=== PATIENT | male | born 1955 ===

== ENCOUNTER 2016-08-17 16:24 | Inpatient (IN) | payer MEDICAID, OTHER ==
--- NOTE | 2016-08-17 17:19 | ED PDOC ---
HPI: Psych/Substance Abuse Time Seen by Provider: 08/17/16 17:08 Chief Complaint (Nursing): Psychiatric Evaluation Chief Complaint (Provider): crisis eval History Per: Patient Additional Complaint(s): 61-year-old male presents to emergency department for crisis evaluation. Patient has history of anxiety and depression and has been off of medications for the past 4 years. Patient has been depressed since the of his son in 2013. Patient presents to emergency department with his other son who is concerned for his father. Patient's son at bedside states that his father often self medicates with marijuana and cocaine. Patient will also obtain Xanax from family members. Upon arrival to the emergency department patient offers no acute medical complaints and he denies suicidal or homicidal ideation. Son at bedside states the patient often expresses thoughts of wanting to . Past Medical History Reviewed: Historical Data, Nursing Documentation, Vital Signs Vital Signs: Last Vital Signs Temp 98.7 F 08/17/16 16:38 Pulse 94 H 08/17/16 16:38 Resp 18 08/17/16 16:38 BP 156/87 H 08/17/16 16:38 Pulse Ox 100 08/17/16 16:38 - Medical History PMH: Anxiety, Depression Other PMH: IBS - Surgical History Surgical History: No Surg Hx - Family History Family History: States: No Known Family Hx - Living Arrangements Living Arrangements: With Family (lives with his mother) - Social History Current smoker - smoking cessation education provided: No Alcohol: Social Drugs: Cannabis, Cocaine - Allergies Allergies/Adverse Reactions: Allergies Allergy/AdvReac Type Severity Reaction Status Date / Time No Known Allergies Allergy Verified 08/17/16 17:43 Review of Systems ROS Statement: Except As Marked, All Systems Reviewed And Found Negative Constitutional: Negative for: Fever Cardiovascular: Negative for: Chest Pain Respiratory: Negative for: Cough Gastrointestinal: Negative for: Nausea, Vomiting, Abdominal Pain, Diarrhea Psych: Positive for: Anxiety, Depression Physical Exam - Reviewed Nursing Documentation Reviewed: Yes Vital Signs Reviewed: Yes - Physical Exam Appears: Positive for: Well, Non-toxic, No Acute Distress Skin: Negative for: Rash Eye Exam: Positive for: Normal appearance, EOMI, PERRL Cardiovascular/Chest: Positive for: Regular Rate, Rhythm Respiratory: Positive for: Normal Breath Sounds Gastrointestinal/Abdominal: Positive for: Soft. Negative for: Tenderness, Distended, Guarding, Rebound Extremity: Positive for: Normal ROM Neurologic/Psych: Positive for: Alert, Oriented, Mood/Affect (flat) - Laboratory Results Result Diagrams: 08/17/16 18:00 08/17/16 18:00 - ECG Interpretation Of ECG: Normal sinus rhythm 77 bpm, no acute changes, reviewed by PA and ED attending O2 Sat by Pulse Oximetry: 100 Pulse Ox Interpretation: Normal - Other Rad CXR X-Ray: Interpreted by Me, Viewed By Me X-Ray Interpretation: no acute finding Medical Decision Making Medical Decision Makin61 year old male here for crisis eval, arrives with his son Plan: CBC CMP BAL UDS UA EKG CXR Crisis eval As per crisis counselor and psychiatrist aviation project manager, Dr. Kerr, patient does meet criteria for admission. Patient agrees to stay, he is medically stable for psychiatric admit. Disposition - Clinical Impression Clinical Impression: Depression - Patient ED Disposition Is Patient to be Admitted: Yes - Disposition Disposition Time: 19:05 Condition: FAIR - Pt Status Changed To: Hospital Disposition Of: Inpatient - Admit Certification Admit to Inpatient:: After my assessment, the patient will require hospitalization for at least two midnights. This is because of the severity of symptoms shown, intensity of services needed, and/or the medical risk in this patient being treated as an outpatient. Results - Lab Results Lab Results: 08/17/16 08/17/16 08/17/16 18:10 18:10 18:00 WBC 10.3 RBC 5.08 Hgb 15.0 Hct 45.2 MCV 89.0 MCH 29.5 MCHC 33.2 RDW 13.5 Plt Count 305 MPV 7.2 Neut % (Auto) 72.9 Lymph % (Auto) 17.6 L [place] % (Auto) 6.4 Eos % (Auto) 1.7 Baso % (Auto) 1.4 Neut # 7.5 H Lymph # 1.8 [place] # 0.7 Eos # 0.2 Baso # 0.1 Sodium Potassium Chloride Carbon Dioxide Anion Gap BUN Creatinine Est GFR ( Amer) Est GFR (Non-Af Amer) Random Glucose Calcium Total Bilirubin AST ALT Alkaline Phosphatase Total Protein Albumin Globulin Albumin/Globulin Ratio Urine Color Yellow Urine Clarity Clear Urine pH 6.0 Ur Specific [place] 1.018 Urine Protein Negative Urine Glucose (UA) Neg Urine Ketones 20 Urine Blood Small Urine Nitrate Negative Urine Bilirubin Negative Urine Urobilinogen 0.2-1.0 Ur Leukocyte Esterase Neg Urine RBC (Auto) 5 H Urine Microscopic WBC 1 Urine Bacteria Few H Urine Opiates Screen Negative Urine Methadone Screen Negative Ur Barbiturates Screen Negative Ur Phencyclidine Scrn Negative Ur Amphetamines Screen Negative U Benzodiazepines Scrn Positive H U Oth Cocaine Metabols Positive H U Cannabinoids Screen Negative Alcohol, Quantitative 08/17/16 18:00 WBC RBC Hgb Hct MCV MCH MCHC RDW Plt Count MPV Neut % (Auto) Lymph % (Auto) [place] % (Auto) Eos % (Auto) Baso % (Auto) Neut # Lymph # [place] # Eos # Baso # Sodium 136 Potassium 3.9 Chloride 98 Carbon Dioxide 28 Anion Gap 14 BUN 19 Creatinine 1.0 Est GFR ( Amer) > 60 Est GFR (Non-Af Amer) > 60 Random Glucose 104 Calcium 9.2 Total Bilirubin 0.6 AST 26 ALT 38 Alkaline Phosphatase 71 Total Protein 7.9 Albumin 4.3 Globulin 3.6 Albumin/Globulin Ratio 1.2 Urine Color Urine Clarity Urine pH Ur Specific [place] Urine Protein Urine Glucose (UA) Urine Ketones Urine Blood Urine Nitrate Urine Bilirubin Urine Urobilinogen Ur Leukocyte Esterase Urine RBC (Auto) Urine Microscopic WBC Urine Bacteria Urine Opiates Screen Urine Methadone Screen Ur Barbiturates Screen Ur Phencyclidine Scrn Ur Amphetamines Screen U Benzodiazepines Scrn U Oth Cocaine Metabols U Cannabinoids Screen Alcohol, Quantitative < 10
[2016-08-17 18:16] LABS: BASO # 0.1 K/uL (0.0-0.2); BASO % 1.4 % (0.0-2.0); EOS # 0.2 K/uL (0.0-0.7); EOS % 1.7 % (0.0-4.0); LYMPH # 1.8 K/uL (1.0-4.3); LYMPH % 17.6 % (20.0-40.0); MEAN CORPUSCULAR HEMOGLOBIN 29.5 pg (27.0-31.0); MEAN CORPUSCULAR HGB CONC 33.2 g/dL (33.0-37.0); MEAN PLATELET VOLUME 7.2 fl (7.2-11.7); MONO # 0.7 K/uL (0.0-0.8); MONO % 6.4 % (0.0-10.0); NEUT # 7.5 K/uL (1.8-7.0); NEUT % 72.9 % (50.0-75.0); RBC 5.08 Mil/uL (4.40-5.90); RED CELL DISTRIBUTION WIDTH 13.5 % (11.5-14.5); WHITE BLOOD COUNT 10.3 K/uL (4.8-10.8)
--- NOTE | 2016-08-17 18:17 | RAD ---
HISTORY: Medical clearance COMPARISON: No prior. FINDINGS: LUNGS: No active pulmonary disease. PLEURA: No significant pleural effusion identified, no pneumothorax apparent. CARDIOVASCULAR: No radiographic findings to suggest acute or significant cardiovascular disease. OSSEOUS STRUCTURES: No significant abnormalities. VISUALIZED UPPER ABDOMEN: Normal. OTHER FINDINGS: None. IMPRESSION: No active disease.
[2016-08-17 18:25] LABS: ALB/GLOB RATIO 1.2 (1.0-2.1); ALBUMIN 4.3 g/dL (3.5-5.0); ALT/SGPT 38 U/L (21-72); AST/SGOT 26 U/L (17-59); BLOOD UREA NITROGEN 19 mg/dl (9-20); CALCIUM 9.2 mg/dL (8.4-10.2); GFR AFRICAN-AMERICAN > 60; GFR NON-AFRICAN AMERICAN > 60
[2016-08-17 18:28] LABS: URINE BACTERIA FEW (<OCC); URINE BILIRUBIN NEGATIVE (NEGATIVE); URINE BLOOD SMALL (NEGATIVE); URINE CLARITY CLEAR (Clear); URINE COLOR YELLOW (YELLOW); URINE GLUCOSE (UA) NEG (Normal); URINE LEUKOCYTE ESTERASE NEG Leu/uL (Negative); URINE NITRATE NEGATIVE (NEGATIVE); URINE PROTEIN NEGATIVE (NEGATIVE); URINE UROBILINOGEN 0.2-1.0 mg/dL (0.2-1.0)
[2016-08-17 18:37] LABS: BARBITURATES, UR NEGATIVE (NEGATIVE); BENZODIAZEPINES, UR POSITIVE (NEGATIVE); OPIATES, UR NEGATIVE (NEGATIVE); PHENCYCLIDINE, UR NEGATIVE (NEGATIVE)
[2016-08-17 20:15] VITALS: O2SAT 99
[2016-08-17] MEDS ORDERED: Magnesium Hydroxide Susp 30 ml UD PO PRN (22:07)
[2016-08-17] MEDS ORDERED: DiphenhydrAMINE 50 mg/ml Inj IM PRN (22:07)
[2016-08-18 07:12] LABS: T4 7.88 ug/dl (5.5-11.0)
[2016-08-18 07:47] LABS: FERRITIN 50.5 ng/mL
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
--- NOTE | 2016-08-18 08:59 | CARD ---
APPROVED REPORT EKG Measurement Heart [id number] <Conclusion> Sinus rhythm with marked sinus arrhythmia Otherwise normal ECG
--- NOTE | 2016-08-18 10:40 | CP.PCM.CON ---
History of Present Illness - History of Present Illness History of Present Illness: CC: "I'm depressed" HPI: Patient is a 61 YO Male with PMH of depression, anxiety and IBS? presents to [facility] for depression. Patient notes that he is not feeling well, and he has been this way since 2013 when his son . Denies thoughts of hurting himself. Per patient he was given medications by his psychiatrist but he stopped taking them. He has been taking his friends medication and using cocaine to help him cope with his feelings. In regards to IBS, pt says that he was never prescribed any medication for it, he had a colonoscopy 3 years ago and the doctor told him he might have IBS. Endorses intermittent pain in the LLQ , but pain is inconsistent. No pain currently. Patient endorses feeling well now , he says "as long as my mind is good, I have no pain and my body is good." Denies chest pain, palpitations, dyspnea, n/v/d/c. PMH: Depression, anxiety, IBS? SurgH: Denies FH: lung cancer father SH: denies smoking, occasional ETOH use, endorses cocaine, marijuana use. Lives with mother. Allergies: NKDA Meds: non-compliant, not taking any home meds Review of Systems - Constitutional Constitutional: absent: Fever, Headache - Cardiovascular Cardiovascular: absent: Chest Pain, Dyspnea, Palpitations - Respiratory Respiratory: absent: Cough, Dyspnea - Gastrointestinal Gastrointestinal: Abdominal Pain. absent: Constipation, Diarrhea, Nausea, Vomiting - Genitourinary Genitourinary: absent: Difficulty Urinating, Dysuria - Musculoskeletal Musculoskeletal: absent: Back Pain, Muscle Weakness - Neurological Neurological: absent: Dizziness, Weakness - Psychiatric Psychiatric: Depression Past Patient History - Past Medical History & Family History Past Medical History?: Yes - Past Social History Smoking Status: Never Smoked Alcohol: Social Drugs: Cannabis, Cocaine Home Situation {Lives}: With Family - GASTROINTESTINAL Hx Irritable Bowel: Yes - PSYCHIATRIC Hx Anxiety: Yes Hx Depression: Yes Hx Substance Use: Yes (COCAINE,MARIJUANA) - ANESTHESIA Hx Anesthesia: No Meds Allergies/Adverse Reactions: Allergies Allergy/AdvReac Type Severity Reaction Status Date / Time No Known Allergies Allergy Verified 08/17/16 17:43 - Medications Medications: Current Medications Acetaminophen (Tylenol 325mg Tab) 650 mg PO Q4 PRN PRN Reason: for pain 4-7 Al Hydrox/Mg Hydrox/Simethicone (Maalox Plus 30 Ml) 30 ml PO Q4 PRN PRN Reason: Dyspepsia Diphenhydramine HCl (Benadryl) 50 mg IM Q6 PRN PRN Reason: Extrapyramidal S/S Unable PO Diphenhydramine HCl (Benadryl) 50 mg PO Q6 PRN PRN Reason: Extrapyramidal Symptoms Diphenhydramine HCl (Benadryl) 50 mg PO HS PRN PRN Reason: Sleep Escitalopram Oxalate (Lexapro) 10 mg PO DAILY NILDA Haloperidol (Haldol) 5 mg PO Q4 PRN PRN Reason: Agitation Haloperidol Lactate (Haldol) 5 mg IM Q4 PRN PRN Reason: Agitation, Unable to Take PO Lorazepam (Ativan) 2 mg IM Q4 PRN PRN Reason: Anxiety/Agitation,Unable PO Lorazepam (Ativan) 2 mg PO Q4 PRN PRN Reason: Anxiety/Agitation Last Admin: 08/18/16 05:02 Dose: 2 mg Magnesium Hydroxide (Milk Of Magnesia) 30 ml PO HS PRN PRN Reason: Constipation Risperidone (Risperdal Tab) 0.5 mg PO HS NILDA Physical Exam - Constitutional Appears: Well, No Acute Distress - Head Exam Head Exam: ATRAUMATIC, NORMOCEPHALIC - Eye Exam Eye Exam: EOMI, Normal appearance - ENT Exam ENT Exam: Mucous Membranes Moist - Neck Exam Neck exam: Positive for: Full Rom - Respiratory Exam Respiratory Exam: Clear to Auscultation Bilateral, NORMAL BREATHING PATTERN. absent: Wheezes - Cardiovascular Exam Cardiovascular Exam: REGULAR RHYTHM, +S1, +S2 - GI/Abdominal Exam GI & Abdominal Exam: Normal Bowel Sounds, Soft. absent: Distended, Guarding, Tenderness - Extremities Exam Extremities exam: Positive for: full ROM, normal inspection. Negative for: pedal edema, tenderness - Neurological Exam Neurological exam: Alert, Normal Gait - Psychiatric Exam Psychiatric exam: Depressed Additional comments: disorganized thought process - Skin Skin Exam: Dry, Intact, Normal Color, Warm Results - Vital Signs Recent Vital Signs: Last Vital Signs Temp 98.1 F 08/17/16 20:15 Pulse 90 08/17/16 20:15 Resp 18 08/17/16 21:37 BP 146/74 08/17/16 20:15 Pulse Ox 99 08/17/16 20:15 - Labs Result Diagrams: 08/17/16 18:00 08/17/16 18:00 Labs: Laboratory Results - last 24 hr 08/18/16 08/18/16 05:30 05:30 Ferritin 50.5 Triglycerides 101 Cholesterol 149 LDL Cholesterol Direct 72 HDL Cholesterol 43 Vitamin B12 364 Free T4 1.17 Thyroxine (T4) 7.88 TSH 3rd Generation 1.32 Assessment & Plan - Assessment and Plan (Free Text) Assessment: Patient is a 61 YO Male with PMH of depression, anxiety and IBS? presents to [facility] for depression. Patient notes that he is not feeling well, and he has been this way since 2013 when his son . Denies thoughts of hurting himself. Per patient he was given medications by his psychiatrist but he stopped taking them. He has been taking his friends medication and using cocaine to help him cope with his feelings. In regards to IBS, pt says that he was never prescribed any medication for it, he had a colonoscopy 3 years ago and the doctor told him he might have IBS. Endorses intermittent pain in the LLQ , but pain is inconsistent. No pain currently. pt displays disorganized thinking. Endorses feeling well now, he says "as long as my mind is good, I have no pain and my body is good." VS stable, pt remains afebrile, NAD. Pt is currently medically stable. 1. Depression - management per psychiatry 2. Multiple substance abuse - management per psychiatry 3. HTN - continue to monitor - consider starting an SUBHASH 4. IBS? - currently stable - no home mediations - continue to monitor Thank you for the consult.
[2016-08-18] MEDS: Nasal Spray(Ocean spray) NAS PRN (21:15)
[2016-08-18 23:03] LABS: FOLATE 18.1 ng/mL
--- NOTE | 2016-08-19 08:22 | PCM.PYCHPN ---
Psychiatric Progress Note - Psychiatric Progress Note Patient seen today, length of contact: Patient evaluated, case discussed with team, chart reviewed, 35 min Patient Chief Complaint: "I'm depressed" Problems Identified/Issues Discussed: Patient continues to report feeling depressed. He is odd at time and has disorganized speech. He is able to acknowledge that his thoughts are not linear. Yesterday he attempted to leave his room with his genitals exposed and did not seem to understand what the problem would be with walking around the unit naked. He was redirectable and put on clothing when asked. He reports that he has not been sleeping at night. We discussed stopping the risperdal and starting Seroquel. r/b/se reviewed. No adverse effects to medications reported. Medication Change: Yes (Stop Risperdal, Start Seroquel 50 mg PO Q12) Medical Record Reviewed: Yes Mental Status Examination - Cognitive Function Orientation: Person, Place, Situation, Time Memory: Intact Attention: WNL Association: Loose Fund of Knowledge: WNL - Mood Mood: Depressed - Affect Affect: Broad - Speech Speech: Appropriate - Formal Thought Process Formal Thought Process: Loosening of associations Psychotic Thoughts and Behaviors: Denies AH/VH, but has disorganized speech and is odd at times - Suicidal Ideation Suicidal Ideation: No - Homicidal Ideation Homicidal Ideation: No Goal/Treatment Plan - Goal/Treatment Plan Need for Continued Stay: Remain at risks for inpatient hospitalization, Severe depression anxiety Progress Toward Problem(s) and Goals/Treatment Plan: Unspecified Depressive Disorder, r/o substance induced mood and/or psychotic disorder; Cocaine Use Disorder; Benzodiazepine Use Disorder -Continue Lexapro 10 mg PO Daily -Stop Risperdal, Start Seroquel 50 mg PO Q12 -Individual and group therapy -Disposition planning -Psychoeducation re: substance abuse -Monitor for benzodiazepine withdrawal; no current symptoms Estimated Date of D/C: 08/23/16 - Smoking Cessation Smoking Cessation Initiated: No Reason for not providing: Not indicated
[2016-08-19] MEDS: Nasal Spray(Ocean spray) NAS PRN (19:58)
[2016-08-20] MEDS: Nasal Spray(Ocean spray) NAS PRN (08:35)
--- NOTE | 2016-08-20 08:50 | PCM.PYCHPN ---
Psychiatric Progress Note - Psychiatric Progress Note Patient seen today, length of contact: Patient evaluated, case discussed with team, chart reviewed, 35 min Patient Chief Complaint: "I'm depressed" Problems Identified/Issues Discussed: Patient continues to have disorganized speech and seems inappropriately happy at times. He reports that his mood is improving, but has difficulty expressing what the means. He is able to acknowledge that his thoughts are not linear. No side effects to Seroquel reports. No AH/VH. Medication Change: Yes (Increase Seroquel to 50 mg PO Daily/ 150 mg PO HS) Medical Record Reviewed: Yes Mental Status Examination - Cognitive Function Orientation: Person, Place, Situation, Time Memory: Intact Attention: WNL Association: Loose Fund of Knowledge: WNL Decription of patient's judgement and insights: Poor I/J - Mood Mood: Depressed - Affect Affect: Broad - Speech Speech: Appropriate - Formal Thought Process Formal Thought Process: Loosening of associations Psychotic Thoughts and Behaviors: Denies AH/VH, but has disorganized speech and is odd at times - Suicidal Ideation Suicidal Ideation: No - Homicidal Ideation Homicidal Ideation: No Goal/Treatment Plan - Goal/Treatment Plan Need for Continued Stay: Remain at risks for inpatient hospitalization, Severe depression anxiety Progress Toward Problem(s) and Goals/Treatment Plan: Unspecified Depressive Disorder, r/o substance induced mood and/or psychotic disorder; Cocaine Use Disorder; Benzodiazepine Use Disorder -Continue Lexapro 10 mg PO Daily -Increase Seroquel to 50 mg PO Daily/ 150 mg PO HS -Individual and group therapy -Disposition planning -Psychoeducation re: substance abuse -Monitor for benzodiazepine withdrawal; no current symptoms Estimated Date of D/C: 08/23/16
[2016-08-20] MEDS: Alum-Mag Hydrox-Simethicone Susp (30 mL) PO PRN ×2 (14:08→19:03)
--- NOTE | 2016-08-21 12:29 | PCM.PYCHPN ---
Psychiatric Progress Note - Psychiatric Progress Note Patient seen today, length of contact: Patient evaluated, case discussed with team, chart reviewed, 35 min Patient Chief Complaint: "I'm okay" Problems Identified/Issues Discussed: Patient continues to have disorganized speech, but is slightly more linear than he was on admission. He reports that his mood is improving. He is able to acknowledge that his thoughts are not linear. No side effects to Seroquel reports. No AH/VH. Medication Change: Yes (Increase Seroquel to 50 mg PO Daily/ 200 mg PO HS) Medical Record Reviewed: Yes Mental Status Examination - Cognitive Function Orientation: Person, Place, Situation, Time Memory: Intact Attention: WNL Association: Loose Fund of Knowledge: WNL Decription of patient's judgement and insights: Poor I/J - Mood Mood: Depressed - Affect Affect: Broad - Speech Speech: Appropriate - Formal Thought Process Formal Thought Process: Loosening of associations Psychotic Thoughts and Behaviors: Denies AH/VH, but has disorganized speech and is odd at times - Suicidal Ideation Suicidal Ideation: No - Homicidal Ideation Homicidal Ideation: No Goal/Treatment Plan - Goal/Treatment Plan Need for Continued Stay: Remain at risks for inpatient hospitalization, Severe depression anxiety Progress Toward Problem(s) and Goals/Treatment Plan: Unspecified Depressive Disorder, r/o substance induced mood and/or psychotic disorder; Cocaine Use Disorder; Benzodiazepine Use Disorder -Continue Lexapro 10 mg PO Daily -Increase Seroquel to 50 mg PO Daily/ 200 mg PO HS -Individual and group therapy -Disposition planning -Psychoeducation re: substance abuse -Monitor for benzodiazepine withdrawal; no current symptoms Estimated Date of D/C: 08/23/16
--- NOTE | 2016-08-22 10:58 | PCM.PYCHPN ---
Psychiatric Progress Note - Psychiatric Progress Note Patient seen today, length of contact: Patient evaluated, case discussed with team, chart reviewed, 35 min Patient Chief Complaint: "I'm okay" Problems Identified/Issues Discussed: Patient continues to have disorganized speech and is not linear on conversation. It is difficult to follow what he is talking about. He reports that his mood and sleep are improving. He is able to acknowledge that his thoughts are not linear. No side effects to Seroquel reports. No AH/VH. Medication Change: Yes (Increase Seroquel to 100 mg PO Daily/ 200 mg PO HS) Medical Record Reviewed: Yes Mental Status Examination - Cognitive Function Orientation: Person, Place, Situation, Time Memory: Intact Attention: WNL Association: Loose Fund of Knowledge: WNL Decription of patient's judgement and insights: Poor I/J - Mood Mood: Depressed - Affect Affect: Broad - Speech Speech: Appropriate - Formal Thought Process Formal Thought Process: Loosening of associations Psychotic Thoughts and Behaviors: Denies AH/VH, but has disorganized speech and is odd at times - Suicidal Ideation Suicidal Ideation: No - Homicidal Ideation Homicidal Ideation: No Goal/Treatment Plan - Goal/Treatment Plan Need for Continued Stay: Remain at risks for inpatient hospitalization, Severe depression anxiety Progress Toward Problem(s) and Goals/Treatment Plan: Unspecified Depressive Disorder, r/o substance induced mood and/or psychotic disorder; Cocaine Use Disorder; Benzodiazepine Use Disorder -Continue Lexapro 10 mg PO Daily -Increase Seroquel to 100 mg PO Daily/ 200 mg PO HS -Individual and group therapy -Disposition planning -Psychoeducation re: substance abuse -Monitor for benzodiazepine withdrawal; no current symptoms Estimated Date of D/C: 08/25/16
--- NOTE | 2016-08-23 14:33 | PCM.PYCHPN ---
Psychiatric Progress Note - Psychiatric Progress Note Patient seen today, length of contact: Patient evaluated, case discussed with team, chart reviewed, 35 min Patient Chief Complaint: "I'm okay" Problems Identified/Issues Discussed: Patient continues to have disorganized speech. As per son, the patient is not at his baseline. It is difficult to follow what he is talking about. He reports that his mood and sleep are improving. He is able to acknowledge that his thoughts are not linear. No side effects to Seroquel reports. No AH/VH. Medication Change: No Medical Record Reviewed: Yes Mental Status Examination - Cognitive Function Orientation: Person, Place, Situation, Time Memory: Intact Attention: WNL Association: Loose Fund of Knowledge: WNL Decription of patient's judgement and insights: Poor I/J - Mood Mood: Depressed - Affect Affect: Broad - Speech Speech: Appropriate - Formal Thought Process Formal Thought Process: Loosening of associations Psychotic Thoughts and Behaviors: Denies AH/VH, but has disorganized speech and is odd at times - Suicidal Ideation Suicidal Ideation: No - Homicidal Ideation Homicidal Ideation: No Goal/Treatment Plan - Goal/Treatment Plan Need for Continued Stay: Remain at risks for inpatient hospitalization, Severe depression anxiety Progress Toward Problem(s) and Goals/Treatment Plan: Unspecified Depressive Disorder, r/o substance induced mood and/or psychotic disorder; Cocaine Use Disorder; Benzodiazepine Use Disorder -Neurology consult-patient's symptoms are not improving with antipsychotics; need to rule out organic cause of decline in functioning and disorganized speech -Continue Lexapro 10 mg PO Daily -Continue Seroquel 100 mg PO Daily/ 200 mg PO HS -Individual and group therapy -Disposition planning -Psychoeducation re: substance abuse -Monitor for benzodiazepine withdrawal; no current symptoms Estimated Date of D/C: 08/25/16
[2016-08-23] MEDS: Nasal Spray(Ocean spray) NAS PRN (16:22)
--- NOTE | 2016-08-24 12:41 | PCM.PYCHPN ---
Psychiatric Progress Note - Psychiatric Progress Note Patient seen today, length of contact: Patient evaluated, case discussed with team, chart reviewed, 35 min Patient Chief Complaint: "I'm okay" Problems Identified/Issues Discussed: Patient's speech is more linear, but continues to be disorganized at times. He reports that his mood and sleep are improving. He denies AH/VH/paranoia/ delusions. No side effects to Seroquel reports. No AH/VH. Medication Change: No Medical Record Reviewed: Yes Mental Status Examination - Cognitive Function Orientation: Person, Place, Situation, Time Memory: Intact Attention: WNL Association: Loose Fund of Knowledge: WNL Decription of patient's judgement and insights: Poor I/J - Mood Mood: Depressed - Affect Affect: Broad - Speech Speech: Appropriate - Formal Thought Process Formal Thought Process: Loosening of associations Psychotic Thoughts and Behaviors: Denies AH/VH, but has disorganized speech and is odd at times - Suicidal Ideation Suicidal Ideation: No - Homicidal Ideation Homicidal Ideation: No Goal/Treatment Plan - Goal/Treatment Plan Need for Continued Stay: Remain at risks for inpatient hospitalization, Severe depression anxiety Progress Toward Problem(s) and Goals/Treatment Plan: Unspecified Depressive Disorder, r/o substance induced mood and/or psychotic disorder; Cocaine Use Disorder; Benzodiazepine Use Disorder -Neurology consult-patient's symptoms not entirely consistent w/ primary psychiatric illness; need to rule out organic cause of decline in functioning and disorganized speech -Psychology consult- r/o dementia -Continue Lexapro 10 mg PO Daily -Continue Seroquel 100 mg PO Daily/ 200 mg PO HS -Individual and group therapy -Disposition planning -Psychoeducation re: substance abuse -Monitor for benzodiazepine withdrawal; no current symptoms Estimated Date of D/C: 08/28/16
[2016-08-24] MEDS: Alum-Mag Hydrox-Simethicone Susp (30 mL) PO PRN (18:05)
--- NOTE | 2016-08-24 18:50 | CP.PCM.CON ---
History of Present Illness - History of Present Illness History of Present Illness: Mr. Pinto is a 61-year-old man with a past medical history of anxiety, and multi -drug abuse who is currently being treated as an inpatient for exacerbation of psychiatric illness. He was noted to have disorganized speech and behavior. Neurology was consulted to assist with the management and care. The patient denies any headaches, visual changes, difficulty with movement, sensory changes , chest pain, SOB or abdominal pain. He was pleasant and conversant and compliant with the exam. Review of Systems - Review of Systems All systems: reviewed and no additional remarkable complaints except Past Patient History - Past Medical History & Family History Past Medical History?: Yes - Past Social History Smoking Status: Never Smoked Alcohol: Social Drugs: Cannabis, Cocaine Home Situation {Lives}: With Family - GASTROINTESTINAL Hx Irritable Bowel: Yes - PSYCHIATRIC Hx Anxiety: Yes Hx Depression: Yes Hx Substance Use: Yes (COCAINE,MARIJUANA) - ANESTHESIA Hx Anesthesia: No Meds Allergies/Adverse Reactions: Allergies Allergy/AdvReac Type Severity Reaction Status Date / Time No Known Allergies Allergy Verified 08/17/16 17:43 - Medications Medications: Current Medications Acetaminophen (Tylenol 325mg Tab) 650 mg PO Q4 PRN PRN Reason: for pain 4-7 Al Hydrox/Mg Hydrox/Simethicone (Maalox Plus 30 Ml) 30 ml PO Q4 PRN PRN Reason: Dyspepsia Last Admin: 08/24/16 18:05 Dose: 30 ml Diphenhydramine HCl (Benadryl) 50 mg IM Q6 PRN PRN Reason: Extrapyramidal S/S Unable PO Diphenhydramine HCl (Benadryl) 50 mg PO Q6 PRN PRN Reason: Extrapyramidal Symptoms Diphenhydramine HCl (Benadryl) 50 mg PO HS PRN PRN Reason: Sleep Last Admin: 08/19/16 01:35 Dose: 50 mg Escitalopram Oxalate (Lexapro) 10 mg PO DAILY NILDA Last Admin: 08/24/16 09:25 Dose: 10 mg Haloperidol (Haldol) 5 mg PO Q4 PRN PRN Reason: Agitation Haloperidol Lactate (Haldol) 5 mg IM Q4 PRN PRN Reason: Agitation, Unable to Take PO Lorazepam (Ativan) 2 mg IM Q4 PRN PRN Reason: Anxiety/Agitation,Unable PO Lorazepam (Ativan) 1 mg PO Q4 PRN PRN Reason: Other Last Admin: 08/21/16 17:27 Dose: 1 mg Magnesium Hydroxide (Milk Of Magnesia) 30 ml PO HS PRN PRN Reason: Constipation Quetiapine Fumarate (Seroquel) 200 mg PO HS NILDA Last Admin: 08/23/16 21:10 Dose: 200 mg Quetiapine Fumarate (Seroquel) 100 mg PO DAILY NILDA Last Admin: 08/24/16 09:26 Dose: 100 mg Sodium Chloride ([place] Nasal [place]) 2 sprays JERRELL Q2 PRN PRN Reason: Nasal congestion Last Admin: 08/23/16 16:22 Dose: 2 sprays Physical Exam - Constitutional Appears: Well - Head Exam Head Exam: ATRAUMATIC, NORMAL INSPECTION, NORMOCEPHALIC - Eye Exam Eye Exam: EOMI, Normal appearance, PERRL - ENT Exam ENT Exam: Mucous Membranes Moist, Normal Exam - Neck Exam Neck exam: Positive for: Normal Inspection - Respiratory Exam Respiratory Exam: Clear to Auscultation Bilateral, NORMAL BREATHING PATTERN - Cardiovascular Exam Cardiovascular Exam: REGULAR RHYTHM, +S1, +S2 - GI/Abdominal Exam GI & Abdominal Exam: Normal Bowel Sounds, Soft. absent: Tenderness - Rectal Exam Rectal Exam: Deferred - Extremities Exam Extremities exam: Positive for: normal inspection - Back Exam Back exam: NORMAL INSPECTION - Neurological Exam Neurological exam: Alert, CN II-XII Intact, Normal Gait, Oriented x3, Reflexes Normal Additional comments: Full strength throughout, normal reflexes and sensation is intact to LT/P/T. Gait was normal. Romberg negative. - Psychiatric Exam Psychiatric exam: Normal Affect, Normal Mood Additional comments: Fund of knowledge, attention and short term memory appear to be intact. - Skin Skin Exam: Dry, Intact, Normal Color, Warm Results - Vital Signs Recent Vital Signs: Last Vital Signs Temp 97.2 F L 08/24/16 16:38 Pulse 90 08/24/16 16:38 Resp 20 08/24/16 16:38 BP 110/70 08/24/16 16:38 Pulse Ox 99 08/17/16 20:15 - Labs Result Diagrams: 08/17/16 18:00 08/17/16 18:00 Assessment & Plan (1) Encephalopathy Assessment and Plan: May have been drug induced as he is now improving with stabilization and was positive for cocaine and marijuana on admission. Will obtain CT head to evaluate for possible underlying pathology. Continue conservative management and plan from psychiatry perspective. Labs were reviewed and TSH, B12, RPR and other dementia work-up tests appear normal. Status: Resolved Priority: Medium
--- NOTE | 2016-08-24 19:48 | CT ---
EXAM: CT Head Without Intravenous Contrast CLINICAL HISTORY: 61 years old, male; Signs and symptoms; Other: Encephalopathy; Additional info: Encephalopathy. Depression. Patient location : h. Step/ room h309 TECHNIQUE: Axial computed tomography images of the head/brain without intravenous contrast. This CT exam was performed using one or more of the following dose reduction techniques: automated exposure control, adjustment of the mA and/or kV according to patient size, and/or use of iterative reconstruction technique. Coronal and sagittal reformatted images were created and reviewed. EXAM DATE/TIME: 08/24/2016 5:56 PM COMPARISON: No relevant prior studies available. FINDINGS: BRAIN: Diffuse, age-related cortical atrophy and ventriculomegaly Nathanael cisterna magna incidentally noted, a normal variant. No significant acute abnormality identified. No acute hemorrhage seen within the brain. No acute extra-axial fluid collections visualized. No evidence of significant mass effect within the brain. Normal lorenz-white matter differentiation. VENTRICLES: See above. BONES/JOINTS: No acute fractures or other acute bony abnormality noted. SOFT TISSUES: No acute abnormality of the visualized soft tissues is seen. SINUSES: Mild inflammatory disease involving the right anterior ethmoid sinuses. MASTOID AIR CELLS: Mastoid air cells appear clear. IMPRESSION: - No acute findings seen within the brain. - See above for remaining findings.
--- NOTE | 2016-08-25 09:28 | PCM.PYCHPN ---
Psychiatric Progress Note - Psychiatric Progress Note Patient seen today, length of contact: Patient evaluated, case discussed with team, chart reviewed, 35 min Patient Chief Complaint: "I'm okay" Problems Identified/Issues Discussed: Patient's is improving clinically with clearer speech. He was seen by neurology consult. Head CT showed diffuse, age related cortical atrophy and ventriculomegaly; otherwise no acute finding. He reports that his mood and sleep are improving. He denies AH/VH/paranoia/delusions. No side effects to Seroquel reports. No AH/VH. Medication Change: No Medical Record Reviewed: Yes Consults ordered or reviewed: Neurology consult Mental Status Examination - Cognitive Function Orientation: Person, Place, Situation, Time Memory: Intact Attention: WNL Association: Loose Fund of Knowledge: WNL Decription of patient's judgement and insights: Fair I/J - Mood Mood: Depressed - Affect Affect: Broad - Speech Speech: Appropriate - Formal Thought Process Formal Thought Process: Loosening of associations Psychotic Thoughts and Behaviors: Denies AH/VH, but has disorganized speech at times - Suicidal Ideation Suicidal Ideation: No - Homicidal Ideation Homicidal Ideation: No Goal/Treatment Plan - Goal/Treatment Plan Need for Continued Stay: Remain at risks for inpatient hospitalization, Severe depression anxiety Progress Toward Problem(s) and Goals/Treatment Plan: Unspecified Depressive Disorder, r/o substance induced mood and/or psychotic disorder; Cocaine Use Disorder; Benzodiazepine Use Disorder -Neurology consult appreciated; Head CT reviewed -Psychology consult- r/o dementia -Continue Lexapro 10 mg PO Daily -Continue Seroquel 100 mg PO Daily/ 200 mg PO HS -Individual and group therapy -Disposition planning- likely discharge on Sunday -Psychoeducation re: substance abuse Estimated Date of D/C: 08/28/16
--- NOTE | 2016-08-25 09:43 | CP.PCM.CON ---
History of Present Illness - History of Present Illness History of Present Illness: Pt is a 62 year old male admitted to [facility] and referred to the financial underwriter for evaluation. Patient reported treatment for anxiety/depression. Note, on evaluation, speech was rapid/pressured, pt was disorganized in his thinking, required redirection to stay focused and to attend clearly. On the DRS, pt scored an overall score of 113. Pt scored in the Deficient Range on Attention, Construction, Conceptualization, and Memory tasks. Pt's Initiation skills fell within normal limits. Overall 113 Initiation 34 Attention 31 Construction 3 Memory 15 Conceptualization 30 Deficits evident and patient would benefit from supervision and assistance for financial managment and medication organization.\ Further psychiatric services recommended Past Patient History - Past Medical History & Family History Past Medical History?: Yes - Past Social History Smoking Status: Never Smoked Alcohol: Social Drugs: Cannabis, Cocaine Home Situation {Lives}: With Family - GASTROINTESTINAL Hx Irritable Bowel: Yes - PSYCHIATRIC Hx Anxiety: Yes Hx Depression: Yes Hx Substance Use: Yes (COCAINE,MARIJUANA) - ANESTHESIA Hx Anesthesia: No Meds Allergies/Adverse Reactions: Allergies Allergy/AdvReac Type Severity Reaction Status Date / Time No Known Allergies Allergy Verified 08/17/16 17:43 - Medications Medications: Current Medications Acetaminophen (Tylenol 325mg Tab) 650 mg PO Q4 PRN PRN Reason: for pain 4-7 Al Hydrox/Mg Hydrox/Simethicone (Maalox Plus 30 Ml) 30 ml PO Q4 PRN PRN Reason: Dyspepsia Last Admin: 08/24/16 18:05 Dose: 30 ml Diphenhydramine HCl (Benadryl) 50 mg IM Q6 PRN PRN Reason: Extrapyramidal S/S Unable PO Diphenhydramine HCl (Benadryl) 50 mg PO Q6 PRN PRN Reason: Extrapyramidal Symptoms Diphenhydramine HCl (Benadryl) 50 mg PO HS PRN PRN Reason: Sleep Last Admin: 08/19/16 01:35 Dose: 50 mg Escitalopram Oxalate (Lexapro) 10 mg PO DAILY NILDA Last Admin: 08/25/16 08:55 Dose: 10 mg Haloperidol (Haldol) 5 mg PO Q4 PRN PRN Reason: Agitation Haloperidol Lactate (Haldol) 5 mg IM Q4 PRN PRN Reason: Agitation, Unable to Take PO Lorazepam (Ativan) 2 mg IM Q4 PRN PRN Reason: Anxiety/Agitation,Unable PO Lorazepam (Ativan) 1 mg PO Q4 PRN PRN Reason: Other Last Admin: 08/21/16 17:27 Dose: 1 mg Magnesium Hydroxide (Milk Of Magnesia) 30 ml PO HS PRN PRN Reason: Constipation Quetiapine Fumarate (Seroquel) 200 mg PO HS NILDA Last Admin: 08/24/16 21:12 Dose: 200 mg Quetiapine Fumarate (Seroquel) 100 mg PO DAILY [facility] Last Admin: 08/25/16 08:56 Dose: 100 mg Sodium Chloride ([place] Nasal [place]) 2 sprays JERRELL Q2 PRN PRN Reason: Nasal congestion Last Admin: 08/23/16 16:22 Dose: 2 sprays Results - Vital Signs Recent Vital Signs: Last Vital Signs Temp 97.2 F L 08/25/16 06:00 Pulse 73 08/25/16 06:00 Resp 18 08/25/16 06:00 BP 102/68 08/25/16 06:00 Pulse Ox 99 08/17/16 20:15 - Labs Result Diagrams: 08/17/16 18:00 08/17/16 18:00
--- NOTE | 2016-08-26 16:55 | PCM.PYCHPN ---
Psychiatric Progress Note - Psychiatric Progress Note Patient seen today, length of contact: Patient evaluated, case discussed with team, chart reviewed, 35 min Patient Chief Complaint: was feeling depressed, anxious and having trouble with memory Problems Identified/Issues Discussed: was feeling depressed, anxious and having trouble with memory Medical Problems: per chart Diagnostic Results: per psychiatry per medicine per nursing per social work per recreational therapy DSM 5 Symptoms Update: alteration in mood, alteration in cognition Medication Change: No Medical Record Reviewed: Yes Consults ordered or reviewed: pt seen by dr rose results appreciated Mental Status Examination - Cognitive Function Orientation: Person, Place, Situation, Time Memory: Intact Attention: WNL Association: Loose Fund of Knowledge: WNL Decription of patient's judgement and insights: somewhat impaired - Mood Mood: Depressed - Affect Affect: Broad - Speech Speech: Appropriate - Formal Thought Process Formal Thought Process: Loosening of associations - Suicidal Ideation Suicidal Ideation: No - Homicidal Ideation Homicidal Ideation: No Goal/Treatment Plan - Goal/Treatment Plan Need for Continued Stay: Remain at risks for inpatient hospitalization, Severe depression anxiety Progress Toward Problem(s) and Goals/Treatment Plan: inpt milieu vital signs clinical observation per protocol and per status adjust medications per clinical status discharge planning in progress Estimated Date of D/C: 08/28/16 - Smoking Cessation Smoking Cessation Initiated: No Reason for not providing: deferred
--- NOTE | 2016-08-27 14:47 | PCM.PYCHPN ---
Psychiatric Progress Note - Psychiatric Progress Note Patient seen today, length of contact: Patient evaluated, case discussed with team, chart reviewed, 35 min Patient Chief Complaint: was feeling depressed, anxious and having trouble with memory-improving Problems Identified/Issues Discussed: was feeling depressed, anxious and having trouble with memory-improving Medical Problems: per chart Diagnostic Results: per psychiatry per medicine per nursing per social work per recreational therapy DSM 5 Symptoms Update: alteration in mood Medication Change: No Medical Record Reviewed: Yes Consults ordered or reviewed: pt being followed by hospitalist pt was seen by dr rose Mental Status Examination - Cognitive Function Orientation: Person, Place, Situation, Time Memory: Intact Attention: WNL Association: Loose Fund of Knowledge: WNL Decription of patient's judgement and insights: somewhat impaired - Mood Mood: Depressed - Affect Affect: Broad - Speech Speech: Appropriate - Formal Thought Process Formal Thought Process: Loosening of associations - Suicidal Ideation Suicidal Ideation: No - Homicidal Ideation Homicidal Ideation: No Goal/Treatment Plan - Goal/Treatment Plan Need for Continued Stay: Remain at risks for inpatient hospitalization, Severe depression anxiety Progress Toward Problem(s) and Goals/Treatment Plan: inpt milieu vital signs clinical observation per protocol and per status adjust medications per clinical status pt was able to process thoughts related differences of opinion related to child rearing than ex denies ill will towards others discharge planning in progress Estimated Date of D/C: 08/28/16 - Smoking Cessation Smoking Cessation Initiated: No Reason for not providing: denies
[2016-08-28 06:13] VITALS: BP 107/65; PULSE 73; RESP 19; TEMP 97.8
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
== END 2016-08-28 14:25 | disposition home or self-care (01) | DRG 881 ==
LOC: H.ER 16:24 → H.ERHOLD 19:50 → H.STEP 21:29
PROVIDERS: ADMIT Psychiatry & Neurology Psychiatry; ATTEND Psychiatry & Neurology Psychiatry
PROC: HZ56ZZZ Individual Psychotherapy for Substance Abuse Treatment, Psychoeducation (ICD-10-PCS; principal; 2016-08-17)
PROC: GZHZZZZ Group Psychotherapy (ICD-10-PCS; 2016-08-17)
DX: F32.9 Major depressive disorder, single episode, unspecified (principal); G92 Toxic encephalopathy; T42.4X1A Poisoning by benzodiazepines, accidental (unintentional), initial encounter; T40.5X1A Poisoning by cocaine, accidental (unintentional), initial encounter; I10 Essential (primary) hypertension; F13.10 Sedative, hypnotic or anxiolytic abuse, uncomplicated; F14.10 Cocaine abuse, uncomplicated; F41.9 Anxiety disorder, unspecified